=== PATIENT | female | born 1930 | race African-American/Black ===

== ENCOUNTER 2017-04-03 17:28 | Inpatient (IN) | payer MEDICARE, OTHER ==
[~2017-04-03] VITALS: Ht 165.1 cm; Wt 62.7 kg
[~2017-04-03 17:28] MED LIST: AMLO10TA80 PO; ATOR20TA65 PO; CLON0.2T PO; LOSA100T14 PO; WARF5TAB76 PO; ZOLP5TAB8 PO
[2017-04-03] MEDS ORDERED: ONDANSETRON HCL 4MG/2ML VIAL IV ONE (18:00)
[2017-04-03 18:20] LABS: HEMATOCRIT. 35.6 % (36.0-48.0); HEMOGLOBIN. 11.4 g/dL (12.0-16.0); MEAN CORPUSCULAR HEMOGLOBIN 26.3 pg (28.0-32.0); MEAN CORPUSCULAR VOLUME 82.4 fL (81.0-99.0); MEAN PLATELET VOLUME 7.9 fl (7.4-10.4); PLATELET 137 x1000/uL (130-400); RED BLOOD CELL COUNT 4.32 mill/uL (4.2-5.4); RED CELL DISTRIBUTION WIDTH 16.1 % (11.6-14.6)
[2017-04-03 18:24] LABS: INR 1.1; PARTIAL THROMBOPLASTIN TIME 27.8 sec (24.0-34.0); PROTHROMBIN TIME 11.6 sec
[2017-04-03 18:26] LABS: CARBON DIOXIDE 21 mEq/L (21-32); CHLORIDE 100 mEq/L (98-107)
[2017-04-03] MEDS ORDERED: SODIUM CHLORIDE 0.9% 250 ML IV ONE (18:28)
[2017-04-03] MEDS ORDERED: POTASSIUM CHLORIDE 20MEQ TABLET SR PO ONE (18:30)
[2017-04-03] MEDS ORDERED: INSULIN REGULAR (HUMULIN R) 300UNITS/3ML IV ONE (18:30)
[2017-04-03 18:49] LABS: PLATELET ESTIMATE NORMAL
[2017-04-03 19:00] LABS: CREATINE KINASE 2544 IU/L (26-192)
[2017-04-03] MEDS ORDERED: MAGNESIUM 2 G PREMIX 50 ML IV ONE (19:00)
[2017-04-03] MEDS ORDERED: MORPHINE SULFATE 2 MG/ML CPJ (NOT FOR IM USE) IV ONE (19:00)
[2017-04-03] MEDS ORDERED: HYDRALAZINE 20MG/ML VIAL IV ONE (19:00)
[2017-04-03] MEDS ORDERED: FUROSEMIDE 20MG/2ML VIAL IVP ONE (19:00)
[2017-04-03 19:52] LABS: CLARITY URINE CLEAR (CLEAR); COLOR URINE YELLOW (YELLOW); GLUCOSE URINE 3+ (NEGATIVE); KETONES URINE 1+ (NEGATIVE); LEUKOCYTE ESTERASE URINE NEGATIVE (NEGATIVE); NITRITE URINE NEGATIVE (NEGATIVE); OCCULT BLOOD URINE 3+ (NEGATIVE); PH URINE 6.5 (4.5-8.0); PROTEIN URINE 2+ (NEGATIVE); SPECIFIC GRAVITY URINE 1.016 (1.005-1.030); UROBILINOGEN URINE 0.2 E.U./dL (0.2-1.0)
[2017-04-04] VITALS (11 sets, daily range): BP systolic 122–179; BP diastolic 43–82
[2017-04-04] MEDS ORDERED: IPRATROPIUM/ALBUTEROL 0.5-3(2.5)MG/3ML NEB INH PRN (05:45)
[2017-04-04] MEDS ORDERED: MAGNESIUM/ALUMINUM HYDROXIDE/SIMETHICONE 30ML UDC PO PRN (05:45)
[2017-04-04] MEDS ORDERED: DEXTROSE 50% WATER 50ML SYRINGE IV PRN (05:45)
[2017-04-04] MEDS ORDERED: CLONIDINE 0.1MG TABLET PO PRN (05:45)
[2017-04-04] MEDS ORDERED: GUAIFENESIN 200MG/10ML SUGAR FREE UDC PO PRN (05:45)
[2017-04-04] MEDS ORDERED: ENOXAPARIN 40MG/0.4ML SYR SUBCUT SCH (05:45)
[2017-04-04] MEDS ORDERED: BLOOD SUGAR DIAGNOSTIC STRIP TEST SCH (07:30)
[2017-04-04] MEDS: BLOOD SUGAR DIAGNOSTIC STRIP TEST SCH ×4 (07:47→21:13)
[2017-04-04] MEDS ORDERED: POTASSIUM CHLORIDE INJ 40 MEQ in DEXT 5% WATER 250 ML IV NR (08:30)
[2017-04-04] MEDS: CLONIDINE 0.2MG TABLET PO SCH ×2 (09:18→20:46)
[2017-04-04] MEDS: AMLODIPINE 10MG TABLET PO SCH (09:18)
[2017-04-04] MEDS: LOSARTAN POTASSIUM 100 MG TABLET PO SCH (09:18)
[2017-04-04] MEDS: INSULIN LISPRO 100 UNITS/ML SUBCUT SCH ×4 (09:20→20:40)
[2017-04-04] MEDS: ENOXAPARIN 60MG/0.6ML SYR SUBCUT SCH ×2 (09:33→20:41)
[2017-04-04] MEDS: INSULIN DETEMIR UD 100 UNITS/ML SYR SUBCUT SCH (10:26)
[2017-04-04] MEDS: ACETAMINOPHEN 325MG TABLET PO PRN ×2 (11:46→19:49)
[2017-04-04] MEDS: DIPHENHYDRAMINE 50MG/ML VIAL IV PRN (11:53)
[2017-04-04] MEDS ORDERED: HYDRALAZINE 20MG/ML VIAL IV PRN (15:30)
[2017-04-04] MEDS ORDERED: CLONIDINE 0.2MG TABLET PO PRN (15:30)
[2017-04-04] MEDS: HYDROCODONE/ACETAMINOPHEN 5/325MG TABLET PO PRN ×2 (16:18→20:48)
[2017-04-04] MEDS ORDERED: MAGNESIUM 2 G PREMIX 50 ML IV NR (17:30)
[2017-04-04] MEDS: DEXTROSE 50% WATER 50ML SYRINGE IV PRN (18:10)
[2017-04-04] MEDS: ATORVASTATIN CALCIUM 20MG TABLET PO SCH (20:42)
[2017-04-04] MEDS: SODIUM CHLORIDE 0.9% INJ 3ML FLUSH IVF SCH (21:03)
[2017-04-05] VITALS (12 sets, daily range): BP systolic 111–191; BP diastolic 49–77
[2017-04-05] MEDS: IPRATROPIUM/ALBUTEROL 0.5-3(2.5)MG/3ML NEB HHN SCH ×6 (00:23→20:42)
[2017-04-05 05:59] LABS: HEMATOCRIT. 32.7 % (36.0-48.0); HEMOGLOBIN. 10.5 g/dL (12.0-16.0); MEAN CORPUSCULAR VOLUME 81.2 fL (81.0-99.0); MEAN PLATELET VOLUME 8.4 fl (7.4-10.4); PLATELET 128 x1000/uL (130-400); RED BLOOD CELL COUNT 4.03 mill/uL (4.2-5.4); RED CELL DISTRIBUTION WIDTH 16.4 % (11.6-14.6)
[2017-04-05] MEDS: SODIUM CHLORIDE 0.9% INJ 3ML FLUSH IVF SCH ×3 (06:11→21:00)
[2017-04-05 06:13] LABS: CARBON DIOXIDE 27 mEq/L (21-32); CHLORIDE 105 mEq/L (98-107)
[2017-04-05 06:19] LABS: CREATINE KINASE MB FRACTION 21.3 ng/mL (0.5-3.6); HDL CHOLESTEROL 60 mg/dL (40-59); LDL CHOLESTEROL 103 mg/dL (5-100)
[2017-04-05] MEDS: BLOOD SUGAR DIAGNOSTIC STRIP TEST SCH ×4 (08:20→21:00)
[2017-04-05 08:21] LABS: CREATINE KINASE 12450 IU/L (26-192)
[2017-04-05] MEDS: ENOXAPARIN 60MG/0.6ML SYR SUBCUT SCH (09:01)
[2017-04-05] MEDS: AMLODIPINE 10MG TABLET PO SCH (09:03)
[2017-04-05] MEDS: CLONIDINE 0.2MG TABLET PO SCH ×2 (09:03→20:58)
[2017-04-05] MEDS: LOSARTAN POTASSIUM 100 MG TABLET PO SCH (09:03)
[2017-04-05] MEDS: HYDROCODONE/ACETAMINOPHEN 5/325MG TABLET PO PRN ×3 (09:04→20:59)
[2017-04-05] MEDS: INSULIN LISPRO 100 UNITS/ML SUBCUT SCH ×4 (09:06→21:00)
[2017-04-05] MEDS: INSULIN DETEMIR UD 100 UNITS/ML SYR SUBCUT SCH (10:00)
[2017-04-05] MEDS ORDERED: CLONIDINE 0.1MG TABLET PO PRN (12:00)
[2017-04-05] MEDS: DIPHENHYDRAMINE 50MG/ML VIAL IV PRN (12:24)
[2017-04-05 12:50] LABS: PLATELET ESTIMATE SLIGHTLY DECREASED
[2017-04-05] MEDS: CEFAZOLIN 500 MG in DEXTROSE 5% WATER 50 ML IV SCH (17:48)
[2017-04-05] MEDS: ATORVASTATIN CALCIUM 20MG TABLET PO SCH (20:58)
[2017-04-06] VITALS (12 sets, daily range): BP systolic 104–159; BP diastolic 47–62
[2017-04-06] MEDS: IPRATROPIUM/ALBUTEROL 0.5-3(2.5)MG/3ML NEB HHN SCH ×6 (00:11→21:11)
[2017-04-06] MEDS: CEFAZOLIN 500 MG in DEXTROSE 5% WATER 50 ML IV SCH ×2 (05:50→17:53)
[2017-04-06] MEDS: SODIUM CHLORIDE 0.9% INJ 3ML FLUSH IVF SCH ×3 (05:56→22:36)
[2017-04-06] MEDS: BLOOD SUGAR DIAGNOSTIC STRIP TEST SCH ×4 (08:08→21:00)
[2017-04-06] MEDS: AMLODIPINE 10MG TABLET PO SCH (08:49)
[2017-04-06] MEDS: CLONIDINE 0.2MG TABLET PO SCH ×2 (08:49→20:57)
[2017-04-06] MEDS: LOSARTAN POTASSIUM 100 MG TABLET PO SCH (08:49)
[2017-04-06] MEDS: HYDROCODONE/ACETAMINOPHEN 5/325MG TABLET PO PRN ×2 (08:51→15:51)
[2017-04-06] MEDS: INSULIN LISPRO 100 UNITS/ML SUBCUT SCH ×4 (08:52→21:00)
[2017-04-06] MEDS ORDERED: ENOXAPARIN 60MG/0.6ML SYR SUBCUT SCH (09:00)
[2017-04-06] MEDS: DIPHENHYDRAMINE 50MG/ML VIAL IV PRN (10:23)
[2017-04-06] MEDS: INSULIN DETEMIR UD 100 UNITS/ML SYR SUBCUT SCH (12:30)
[2017-04-06] MEDS: ATORVASTATIN CALCIUM 20MG TABLET PO SCH (20:57)
[2017-04-06] MEDS: DEXTROSE 50% WATER 50ML SYRINGE IV PRN (21:28)
[2017-04-07] VITALS (13 sets, daily range): BP systolic 116–167; BP diastolic 51–109
[2017-04-07] MEDS: IPRATROPIUM/ALBUTEROL 0.5-3(2.5)MG/3ML NEB HHN SCH ×6 (00:17→21:36)
[2017-04-07] MEDS: SODIUM CHLORIDE 0.9% INJ 3ML FLUSH IVF SCH ×3 (06:22→21:14)
[2017-04-07] MEDS: CEFAZOLIN 500 MG in DEXTROSE 5% WATER 50 ML IV SCH ×2 (06:25→17:13)
[2017-04-07 06:47] LABS: BASOPHILS % 0.3 % (0.0-2.0); EOSINOPHILS % 0.6 % (0.0-5.0); HEMATOCRIT. 27.7 % (36.0-48.0); LYMPHOCYTES % 7.5 % (20.0-50.0); MEAN CORPUSCULAR VOLUME 80.2 fL (81.0-99.0); MEAN PLATELET VOLUME 8.8 fl (7.4-10.4); MONOCYTES % 6.8 % (2.0-8.0); NEUTROPHILS % 84.8 % (40.0-76.0); PLATELET 120 x1000/uL (130-400); RED BLOOD CELL COUNT 3.45 mill/uL (4.2-5.4); RED CELL DISTRIBUTION WIDTH 16.3 % (11.6-14.6)
[2017-04-07 07:16] LABS: CHLORIDE 98 mEq/L (98-107)
[2017-04-07 07:57] LABS: CARBON DIOXIDE 25 mEq/L (21-32); CREATINE KINASE MB FRACTION 45.1 ng/mL (0.5-3.6)
[2017-04-07] MEDS: INSULIN LISPRO 100 UNITS/ML SUBCUT SCH ×4 (08:00→21:00)
[2017-04-07] MEDS: BLOOD SUGAR DIAGNOSTIC STRIP TEST SCH ×4 (08:25→21:07)
[2017-04-07] MEDS: CLONIDINE 0.2MG TABLET PO SCH ×2 (08:33→21:13)
[2017-04-07] MEDS: LOSARTAN POTASSIUM 100 MG TABLET PO SCH (08:33)
[2017-04-07] MEDS: AMLODIPINE 10MG TABLET PO SCH (08:33)
[2017-04-07] MEDS: HYDROCODONE/ACETAMINOPHEN 5/325MG TABLET PO PRN ×2 (08:45→13:21)
[2017-04-07] MEDS: INSULIN DETEMIR UD 100 UNITS/ML SYR SUBCUT SCH (10:15)
[2017-04-07 12:38] LABS: CREATINE KINASE 21200 IU/L (26-192)
[2017-04-07] MEDS ORDERED: SODIUM CHLORIDE 0.45% 1,000 ML IV SCH (12:45)
[2017-04-07] MEDS ORDERED: SODIUM CHLORIDE 0.45% 500 ML IV ONE (12:55)
[2017-04-07 14:24] LABS: HEPATITIS B SURFACE ANTIGEN NEGATIVE
[2017-04-07 14:46] LABS: HEPATITIS B CORE AB IGM NEGATIVE
[2017-04-07 14:47] LABS: HEPATITIS A AB IGM NEGATIVE (NEGATIVE)
[2017-04-07] MEDS: SODIUM CHLORIDE 0.9% 1,000 ML IV SCH (14:50)
[2017-04-07 15:50] LABS: CLARITY URINE TURBID (CLEAR); COLOR URINE DARK YELLOW (YELLOW); GLUCOSE URINE NEGATIVE (NEGATIVE); KETONES URINE NEGATIVE (NEGATIVE); LEUKOCYTE ESTERASE URINE 2+ (NEGATIVE); NITRITE URINE NEGATIVE (NEGATIVE); OCCULT BLOOD URINE 3+ (NEGATIVE); PROTEIN URINE 2+ (NEGATIVE); UROBILINOGEN URINE 0.2 E.U./dL (0.2-1.0)
[2017-04-07] MEDS ORDERED: AMLODIPINE 10MG TABLET PO SCH (21:00)
[2017-04-07] MEDS: ACETAMINOPHEN 325MG TABLET PO PRN (21:13)
[2017-04-07] MEDS: DIPHENHYDRAMINE 50MG/ML VIAL IV PRN (21:47)
[2017-04-08] VITALS (14 sets, daily range): BP systolic 132–169; BP diastolic 47–98
[2017-04-08] MEDS: IPRATROPIUM/ALBUTEROL 0.5-3(2.5)MG/3ML NEB HHN SCH ×6 (00:31→20:45)
[2017-04-08] MEDS: SODIUM CHLORIDE 0.9% 1,000 ML IV SCH ×3 (03:50→18:33)
[2017-04-08] MEDS: CEFAZOLIN 500 MG in DEXTROSE 5% WATER 50 ML IV SCH ×2 (05:31→18:32)
[2017-04-08] MEDS: SODIUM CHLORIDE 0.9% INJ 3ML FLUSH IVF SCH ×3 (05:31→21:44)
[2017-04-08] MEDS: HYDROCODONE/ACETAMINOPHEN 5/325MG TABLET PO PRN ×2 (05:42→10:37)
[2017-04-08 06:54] LABS: HEMATOCRIT. 27.4 % (36.0-48.0); HEMOGLOBIN. 8.9 g/dL (12.0-16.0); MEAN CORPUSCULAR HEMOGLOBIN 25.9 pg (28.0-32.0); MEAN CORPUSCULAR VOLUME 79.6 fL (81.0-99.0); MEAN PLATELET VOLUME 8.6 fl (7.4-10.4); PLATELET 127 x1000/uL (130-400); RED BLOOD CELL COUNT 3.44 mill/uL (4.2-5.4); RED CELL DISTRIBUTION WIDTH 16.3 % (11.6-14.6)
[2017-04-08 07:41] LABS: CARBON DIOXIDE 25 mEq/L (21-32); CHLORIDE 98 mEq/L (98-107); PHOSPHORUS 5.8 mg/dL (2.5-4.9); T4 FREE 1.54 ng/dL (0.76-1.46)
[2017-04-08] MEDS: INSULIN LISPRO 100 UNITS/ML SUBCUT SCH ×4 (08:00→20:51)
[2017-04-08] MEDS ORDERED: SODIUM POLYSTYRENE SULFONATE 15 G/60 ML BOT PO SCH (08:00)
[2017-04-08] MEDS: BLOOD SUGAR DIAGNOSTIC STRIP TEST SCH ×4 (08:01→20:50)
[2017-04-08 08:55] LABS: CREATINE KINASE 43242 IU/L (26-192)
[2017-04-08] MEDS: NIFEDIPINE XL 60MG TAB PO SCH ×2 (09:07→21:44)
[2017-04-08] MEDS: CLONIDINE 0.2MG TABLET PO SCH ×2 (09:07→21:44)
[2017-04-08] MEDS: INSULIN DETEMIR UD 100 UNITS/ML SYR SUBCUT SCH (09:21)
[2017-04-08] MEDS: DEXTROSE 50% WATER 50ML SYRINGE IV PRN ×2 (13:00→18:39)
[2017-04-08 13:54] LABS: PLATELET ESTIMATE SLIGHTLY DECREASED
[2017-04-08] MEDS: DOCUSATE SODIUM 100MG CAPSULE PO SCH (18:33)
[2017-04-08 19:50] LABS: CREATINE KINASE 82940 IU/L (26-192)
[2017-04-09] VITALS (18 sets, daily range): BP systolic 101–149; BP diastolic 45–77
[2017-04-09] MEDS: SODIUM CHLORIDE 0.9% 1,000 ML IV SCH ×4 (00:31→21:06)
[2017-04-09] MEDS: IPRATROPIUM/ALBUTEROL 0.5-3(2.5)MG/3ML NEB HHN SCH ×7 (00:44→23:42)
[2017-04-09] MEDS: SODIUM CHLORIDE 0.9% INJ 3ML FLUSH IVF SCH ×3 (05:52→22:00)
[2017-04-09] MEDS: CEFAZOLIN 500 MG in DEXTROSE 5% WATER 50 ML IV SCH (05:52)
[2017-04-09 06:32] LABS: HEMATOCRIT. 26.8 % (36.0-48.0); HEMOGLOBIN. 8.9 g/dL (12.0-16.0); MEAN CORPUSCULAR HEMOGLOBIN 26.7 pg (28.0-32.0); MEAN CORPUSCULAR VOLUME 80.3 fL (81.0-99.0); MEAN PLATELET VOLUME 8.5 fl (7.4-10.4); PLATELET 113 x1000/uL (130-400); RED BLOOD CELL COUNT 3.34 mill/uL (4.2-5.4); RED CELL DISTRIBUTION WIDTH 16.6 % (11.6-14.6)
[2017-04-09 07:07] LABS: CARBON DIOXIDE 22 mEq/L (21-32); CHLORIDE 103 mEq/L (98-107); CREATINE KINASE MB FRACTION 77.8 ng/mL (0.5-3.6); PHOSPHORUS 6.9 mg/dL (2.5-4.9)
[2017-04-09] MEDS: HYDROCODONE/ACETAMINOPHEN 5/325MG TABLET PO PRN (07:35)
[2017-04-09 07:51] LABS: BG BASE EXCESS -3.2 mmol/L (-2.0-2.0); BG CARBOXYHEMOGLOBIN 0.3 % (0.5-1.5); BG DEOXYHEMOGLOBIN 2.5 % (0.0-5.0); BG FRACTION INSPIRED OXYGEN 28; BG METHEMOGLOBIN 0.4 % (0.0-1.5); BG OXYGEN SATURATION 97.5 % (92.0-98.5); BG OXYHEMOGLOBIN 96.8 % (94.0-97.0); BG PCO2 21.7 mmHg (35.0-45.0); BG PH 7.537 (7.350-7.450); BG PO2 104.7 mmHg (75.0-100.0); BG SAMPLE SITE RIGHT RADIAL; BG TOTAL HEMOGLOBIN 10.3 g/dL (12.0-18.0); BG VENT MODE NASAL CANNULA
[2017-04-09] MEDS: INSULIN LISPRO 100 UNITS/ML SUBCUT SCH ×4 (08:00→21:00)
[2017-04-09] MEDS: BLOOD SUGAR DIAGNOSTIC STRIP TEST SCH ×4 (08:00→21:00)
[2017-04-09 09:38] LABS: CREATINE KINASE 43734 IU/L (26-192)
[2017-04-09] MEDS: DOCUSATE SODIUM 100MG CAPSULE PO SCH ×2 (09:47→16:30)
[2017-04-09] MEDS: CLONIDINE 0.2MG TABLET PO SCH ×2 (09:48→21:00)
[2017-04-09] MEDS: NIFEDIPINE XL 60MG TAB PO SCH ×2 (10:00→21:00)
[2017-04-09] MEDS: INSULIN DETEMIR UD 100 UNITS/ML SYR SUBCUT SCH (10:06)
[2017-04-09 11:36] LABS: BG BASE EXCESS -5.7 mmol/L (-2.0-2.0); BG CARBOXYHEMOGLOBIN 0.5 % (0.5-1.5); BG DEOXYHEMOGLOBIN 4.8 % (0.0-5.0); BG FRACTION INSPIRED OXYGEN 21; BG HCO3 ACT 17.7 mmol/L (22.0-26.0); BG METHEMOGLOBIN 0.3 % (0.0-1.5); BG OXYGEN SATURATION 95.2 % (92.0-98.5); BG OXYHEMOGLOBIN 94.4 % (94.0-97.0); BG PCO2 26.9 mmHg (35.0-45.0); BG PH 7.435 (7.350-7.450); BG PO2 88.3 mmHg (75.0-100.0); BG SAMPLE SITE RIGHT BRACHIAL; BG TOTAL HEMOGLOBIN 8.6 g/dL (12.0-18.0); BG VENT MODE ROOM AIR
[2017-04-09 14:01] LABS: PLATELET ESTIMATE NORMAL
[2017-04-09] MEDS: LIDOCAINE 5% PATCH TOP SCH (15:37)
[2017-04-09] MEDS ORDERED: HYDROCODONE/ACETAMINOPHEN 5/325MG TABLET PO PRN (16:30)
[2017-04-09] MEDS: CALCIUM CARBONATE/VITAMIN D3 500MG TABLET PO SCH (16:30)
[2017-04-09 18:32] LABS: CREATINE KINASE 41218 IU/L (26-192)
[2017-04-09] MEDS: DEXTROSE 50% WATER 50ML SYRINGE IV PRN (20:28)
[2017-04-09] MEDS ORDERED: HEPARIN 25,000 UNITS PREMIX 500 ML IV SCH (22:00)
[2017-04-09] MEDS ORDERED: HEPARIN 5000 UNITS/ML VIAL IV ONE (22:00)
[2017-04-09 22:06] LABS: INR 1.1; PARTIAL THROMBOPLASTIN TIME 36.2 sec (24.0-34.0); PROTHROMBIN TIME 11.4 sec
[2017-04-09] MEDS ORDERED: HEPARIN BOLUS PRN aPTT <30 IV (22:45)
[2017-04-09] MEDS ORDERED: HEPARIN BOLUS PRN aPTT 30-44 IV (22:45)
[2017-04-09] MEDS ORDERED: HEPARIN 60 UNITS/KG BOLUS IV SCH (23:00)
[2017-04-09] MEDS: HEPARIN 25,000 UNITS PREMIX 500 ML IV SCH (23:48)
[2017-04-10] VITALS (101 sets, daily range): BP systolic 97–177; BP diastolic 28–104
[2017-04-10] MEDS: IPRATROPIUM/ALBUTEROL 0.5-3(2.5)MG/3ML NEB HHN SCH ×5 (04:00→20:18)
[2017-04-10] MEDS: SODIUM CHLORIDE 0.9% INJ 3ML FLUSH IVF SCH ×3 (05:26→21:06)
[2017-04-10 05:32] LABS: HEMATOCRIT. 25.5 % (36.0-48.0); HEMOGLOBIN. 8.2 g/dL (12.0-16.0); MEAN CORPUSCULAR HEMOGLOBIN 25.8 pg (28.0-32.0); MEAN CORPUSCULAR VOLUME 79.9 fL (81.0-99.0); MEAN PLATELET VOLUME 8.4 fl (7.4-10.4); PLATELET 104 x1000/uL (130-400); RED BLOOD CELL COUNT 3.19 mill/uL (4.2-5.4); RED CELL DISTRIBUTION WIDTH 16.4 % (11.6-14.6)
[2017-04-10 05:33] LABS: CARBON DIOXIDE 20 mEq/L (21-32); CHLORIDE 105 mEq/L (98-107); CREATINE KINASE MB FRACTION 72.3 ng/mL (0.5-3.6); PHOSPHORUS 7.8 mg/dL (2.5-4.9)
[2017-04-10] MEDS: CEFAZOLIN 500 MG in DEXTROSE 5% WATER 50 ML IV SCH ×2 (06:00→19:30)
[2017-04-10] MEDS: SODIUM CHLORIDE 0.9% 1,000 ML IV SCH (06:01)
[2017-04-10] MEDS: BLOOD SUGAR DIAGNOSTIC STRIP TEST SCH ×4 (06:01→20:55)
[2017-04-10] MEDS: DEXTROSE 50% WATER 50ML SYRINGE IV PRN ×2 (06:09→21:05)
[2017-04-10] MEDS: INSULIN LISPRO 100 UNITS/ML SUBCUT SCH ×4 (06:09→20:56)
[2017-04-10] MEDS: TRAMADOL 50MG TABLET PO PRN ×2 (07:52→14:19)
[2017-04-10] MEDS: CLONIDINE 0.2MG TABLET PO SCH ×2 (08:18→21:05)
[2017-04-10] MEDS: DOCUSATE SODIUM 100MG CAPSULE PO SCH ×2 (08:18→17:00)
[2017-04-10] MEDS: NIFEDIPINE XL 60MG TAB PO SCH ×2 (08:18→21:05)
[2017-04-10 08:21] LABS: PLATELET ESTIMATE SLIGHTLY DECREASED
[2017-04-10] MEDS: CALCITONIN,SALMON, 3.7 ML NASAL SPRAY ONENSTRL SCH (09:46)
[2017-04-10] MEDS: LIDOCAINE 5% PATCH TOP SCH (09:47)
[2017-04-10] MEDS: INSULIN DETEMIR UD 100 UNITS/ML SYR SUBCUT SCH (09:55)
[2017-04-10 10:33] LABS: CREATINE KINASE 30485 IU/L (26-192)
[2017-04-10] MEDS: CALCIUM CARBONATE/VITAMIN D3 500MG TABLET PO SCH ×2 (11:16→17:49)
[2017-04-10] MEDS: ACETAMINOPHEN 325MG TABLET PO PRN (11:16)
[2017-04-10] MEDS: HYDROMORPHONE HCL 2MG TABLET PO PRN ×3 (11:57→23:54)
[2017-04-10] MEDS: DEXT 5%/0.9% NACL 1,000 ML IV SCH ×2 (12:30→21:06)
[2017-04-10] MEDS: CALCIUM ACETATE 667MG CAPSULE PO SCH ×2 (13:58→17:49)
[2017-04-10] MEDS: DIPHENHYDRAMINE 50MG/ML VIAL IV PRN ×2 (15:26→22:35)
[2017-04-11] VITALS (82 sets, daily range): BP systolic 60–212; BP diastolic 26–110
[2017-04-11] MEDS: IPRATROPIUM/ALBUTEROL 0.5-3(2.5)MG/3ML NEB HHN SCH ×5 (00:18→16:14)
[2017-04-11] MEDS: BLOOD SUGAR DIAGNOSTIC STRIP TEST SCH ×3 (05:43→16:30)
[2017-04-11 05:44] LABS: HEMATOCRIT. 29.3 % (36.0-48.0); HEMOGLOBIN. 9.7 g/dL (12.0-16.0); MEAN CORPUSCULAR HEMOGLOBIN 26.6 pg (28.0-32.0); MEAN CORPUSCULAR VOLUME 80.6 fL (81.0-99.0); MEAN PLATELET VOLUME 8.9 fl (7.4-10.4); PLATELET 114 x1000/uL (130-400); RED BLOOD CELL COUNT 3.64 mill/uL (4.2-5.4); RED CELL DISTRIBUTION WIDTH 16.3 % (11.6-14.6)
[2017-04-11] MEDS: CEFAZOLIN 500 MG in DEXTROSE 5% WATER 50 ML IV SCH (05:54)
[2017-04-11] MEDS: SODIUM CHLORIDE 0.9% INJ 3ML FLUSH IVF SCH ×2 (05:54→13:47)
[2017-04-11] MEDS: CALCIUM ACETATE 667MG CAPSULE PO SCH ×3 (05:54→17:00)
[2017-04-11] MEDS: TRAMADOL 50MG TABLET PO PRN (05:54)
[2017-04-11] MEDS: INSULIN LISPRO 100 UNITS/ML SUBCUT SCH ×3 (05:55→17:00)
[2017-04-11 06:03] LABS: CARBON DIOXIDE 18 mEq/L (21-32); CHLORIDE 101 mEq/L (98-107); CREATINE KINASE MB FRACTION 92.4 ng/mL (0.5-3.6)
[2017-04-11] MEDS: ONDANSETRON HCL 4MG/2ML VIAL IV PRN ×2 (06:35→12:00)
[2017-04-11 07:21] LABS: CREATINE KINASE 23000 IU/L (26-192)
[2017-04-11 07:33] LABS: PLATELET ESTIMATE DECREASED
[2017-04-11] MEDS: DEXT 5%/0.9% NACL 1,000 ML IV SCH (08:39)
[2017-04-11] MEDS: HEPARIN 25,000 UNITS PREMIX 500 ML IV SCH (08:43)
[2017-04-11] MEDS: CALCIUM CARBONATE/VITAMIN D3 500MG TABLET PO SCH ×2 (08:43→17:00)
[2017-04-11] MEDS: DOCUSATE SODIUM 100MG CAPSULE PO SCH ×2 (08:44→17:00)
[2017-04-11] MEDS: NIFEDIPINE XL 60MG TAB PO SCH (08:44)
[2017-04-11] MEDS: CALCITONIN,SALMON, 3.7 ML NASAL SPRAY ONENSTRL SCH (08:44)
[2017-04-11] MEDS: LIDOCAINE 5% PATCH TOP SCH (08:47)
[2017-04-11] MEDS: CLONIDINE 0.2MG TABLET PO SCH (08:48)
[2017-04-11] MEDS ORDERED: CEFEPIME HCL 1000MG/VIAL INJ IM SCH (09:15)
[2017-04-11] MEDS ORDERED: ALBUMIN HUMAN 25GM/100ML (25%) IV NR (09:15)
[2017-04-11] MEDS ORDERED: SODIUM BICARBONATE 650 MG TABLET PO SCH (09:30)
[2017-04-11] MEDS: INSULIN DETEMIR UD 100 UNITS/ML SYR SUBCUT SCH (10:04)
[2017-04-11 10:28] LABS: BG BASE EXCESS -9.3 mmol/L (-2.0-2.0); BG CARBOXYHEMOGLOBIN 0.6 % (0.5-1.5); BG DEOXYHEMOGLOBIN 17.8 % (0.0-5.0); BG FRACTION INSPIRED OXYGEN 21; BG HCO3 ACT 15.8 mmol/L (22.0-26.0); BG METHEMOGLOBIN 0.1 % (0.0-1.5); BG OXYGEN SATURATION 82.1 % (92.0-98.5); BG OXYHEMOGLOBIN 81.5 % (94.0-97.0); BG PCO2 31.7 mmHg (35.0-45.0); BG PH 7.315 (7.350-7.450); BG PO2 52.7 mmHg (75.0-100.0); BG SAMPLE SITE RIGHT BRACHIAL; BG TOTAL HEMOGLOBIN 10.5 g/dL (12.0-18.0); BG VENT MODE ROOM AIR
[2017-04-11] MEDS ORDERED: CEFEPIME 1,000 MG in DEXTROSE 5% WATER 50 ML IV SCH (11:00)
[2017-04-11] MEDS ORDERED: VANCOMYCIN 1,250 MG in DEXT 5% WATER 250 ML IV SCH (11:30)
[2017-04-11] MEDS ORDERED: METOCLOPRAMIDE HCL 10MG/2ML VIAL IV PRN (11:45)
[2017-04-11] MEDS ORDERED: PANTOPRAZOLE SODIUM 40 MG/VIAL IV SCH (11:45)
[2017-04-11] MEDS ORDERED: ETOMIDATE 2MG/ML 10ML VIAL IV ONE (12:57)
[2017-04-11] MEDS ORDERED: SUCCINYLCHOLINE CHLORIDE 200MG/10ML VIAL IV ONE (12:57)
[2017-04-11] MEDS: DIPHENHYDRAMINE 50MG/ML VIAL IV PRN (13:46)
[2017-04-11] MEDS ORDERED: SODIUM BICARBONATE 7.5% 0.9 MEQ/ML 50ML SYR IV ONE (13:52)
[2017-04-11] MEDS ORDERED: EPINEPHRINE 0.1MG/ML (1:10,000) 10ML SYR ONE (13:52)
[2017-04-11 15:59] LABS: BG BASE EXCESS -12.9 mmol/L (-2.0-2.0); BG CARBOXYHEMOGLOBIN 0.3 % (0.5-1.5); BG DEOXYHEMOGLOBIN 22.1 % (0.0-5.0); BG FRACTION INSPIRED OXYGEN 91; BG HCO3 ACT 16.2 mmol/L (22.0-26.0); BG METHEMOGLOBIN 0.3 % (0.0-1.5); BG OXYGEN SATURATION 77.8 % (92.0-98.5); BG OXYHEMOGLOBIN 77.3 % (94.0-97.0); BG PCO2 51.3 mmHg (35.0-45.0); BG PH 7.116 (7.350-7.450); BG PO2 57.8 mmHg (75.0-100.0); BG SAMPLE SITE RIGHT BRACHIAL; BG VENT MODE MASK - NRB
[2017-04-11] MEDS ORDERED: PROPOFOL 10MG/ML 100ML 100 ML IV PRN (16:15)
[2017-04-11] MEDS ORDERED: NOREPINEPHRINE 16 MG in DEXT 5% WATER 234 ML IV PRN (16:30)
[2017-04-11] MEDS ORDERED: HEPARIN SODIUM 1,000 UNIT/1ML VIAL IV NR (17:00)
[2017-04-11 18:15] LABS: BG BASE EXCESS -13.6 mmol/L (-2.0-2.0); BG CARBOXYHEMOGLOBIN 0.3 % (0.5-1.5); BG DEOXYHEMOGLOBIN 17.6 % (0.0-5.0); BG FRACTION INSPIRED OXYGEN 100; BG HCO3 ACT 15.6 mmol/L (22.0-26.0); BG METHEMOGLOBIN 0.4 % (0.0-1.5); BG OXYGEN SATURATION 82.3 % (92.0-98.5); BG OXYHEMOGLOBIN 81.7 % (94.0-97.0); BG PCO2 51.1 mmHg (35.0-45.0); BG PH 7.103 (7.350-7.450); BG SAMPLE SITE RIGHT BRACHIAL; BG TIDAL VOLUME(mL) 500 mL; BG TOTAL HEMOGLOBIN 10.7 g/dL (12.0-18.0); BG VENT MODE AC; BG VENT RATE 14 set
[2017-04-11] MEDS ORDERED: SODIUM BICARBONATE 8.4% 1 MEQ/ML 50ML SYR IV NR (18:30)
[2017-04-11] MEDS ORDERED: SODIUM ACETATE 150 MEQ in DEXTROSE 5% WATER 1,000 ML IV SCH (20:30)
[2017-04-12] MEDS ORDERED: PANTOPRAZOLE SODIUM 40 MG/VIAL IV SCH (09:00)
== END 2017-04-11 19:55 | disposition expired | DRG 871 ==
LOC: ER 17:28 → EDBEDREQSVC 20:11 → 5EST 21:02 → EDBEDREQ 21:05 → 5EST 04-05 00:15 → MICUSO 04-09 20:20
PROVIDERS: ADMIT Internal Medicine; ATTEND Internal Medicine
PROC: 5A1935Z Respiratory Ventilation, Less than 24 Consecutive Hours (ICD-10-PCS; principal; 2017-04-03)
PROC: 0BH17EZ Insertion of Endotracheal Airway into Trachea, Via Natural or Artificial Opening (ICD-10-PCS; 2017-04-03)
PROC: 0CJS8ZZ Inspection of Larynx, Via Natural or Artificial Opening Endoscopic (ICD-10-PCS; 2017-04-03)
PROC: 02HV33Z Insertion of Infusion Device into Superior Vena Cava, Percutaneous Approach (ICD-10-PCS; 2017-04-03)
PROC: B548ZZA Ultrasonography of Superior Vena Cava, Guidance (ICD-10-PCS; 2017-04-03)
PROC: 30233N1 Transfusion of Nonautologous Red Blood Cells into Peripheral Vein, Percutaneous Approach (ICD-10-PCS; 2017-04-10)
PROC: 02H633Z Insertion of Infusion Device into Right Atrium, Percutaneous Approach (ICD-10-PCS; 2017-04-10)
PROC: B244ZZZ Ultrasonography of Right Heart (ICD-10-PCS; 2017-04-10)
PROC: 5A1D00Z (ICD-10-PCS; 2017-04-11)
DX: A41.51 Sepsis due to Escherichia coli [E. coli] (principal); I21.4 Non-ST elevation (NSTEMI) myocardial infarction; E43 Unspecified severe protein-calorie malnutrition; J96.01 Acute respiratory failure with hypoxia; N17.0 Acute kidney failure with tubular necrosis; G93.40 Encephalopathy, unspecified; I50.41 Acute combined systolic (congestive) and diastolic (congestive) heart failure; E13.10 Other specified diabetes mellitus with ketoacidosis without coma; N39.0 Urinary tract infection, site not specified; I45.89 Other specified conduction disorders; M48.54XA Collapsed vertebra, not elsewhere classified, thoracic region, initial encounter for fracture; M62.82 Rhabdomyolysis; Z68.23 Body mass index [BMI] 23.0-23.9, adult; D50.9 Iron deficiency anemia, unspecified; D69.6 Thrombocytopenia, unspecified; E78.00 Pure hypercholesterolemia, unspecified; E78.5 Hyperlipidemia, unspecified; E83.42 Hypomagnesemia; E87.5 Hyperkalemia; E87.6 Hypokalemia; F03.90 Unspecified dementia, unspecified severity, without behavioral disturbance, psychotic disturbance, mood disturbance, and anxiety; G83.11 Monoplegia of lower limb affecting right dominant side; I11.0 Hypertensive heart disease with heart failure; I16.0 Hypertensive urgency; I25.10 Atherosclerotic heart disease of native coronary artery without angina pectoris; I27.2 Other secondary pulmonary hypertension; I35.1 Nonrheumatic aortic (valve) insufficiency; I48.2 Chronic atrial fibrillation; I49.5 Sick sinus syndrome; I77.1 Stricture of artery; K21.9 Gastro-esophageal reflux disease without esophagitis; K44.9 Diaphragmatic hernia without obstruction or gangrene; K57.90 Diverticulosis of intestine, part unspecified, without perforation or abscess without bleeding; M48.06 Spinal stenosis, lumbar region; M51.27 Other intervertebral disc displacement, lumbosacral region; S00.03XA Contusion of scalp, initial encounter; E13.51 Other specified diabetes mellitus with diabetic peripheral angiopathy without gangrene; Z66 Do not resuscitate; K27.9 Peptic ulcer, site unspecified, unspecified as acute or chronic, without hemorrhage or perforation; J44.9 Chronic obstructive pulmonary disease, unspecified; W06.XXXA Fall from bed, initial encounter; Z59.9 Problem related to housing and economic circumstances, unspecified; Z79.01 Long term (current) use of anticoagulants; Z82.49 Family history of ischemic heart disease and other diseases of the circulatory system; Z83.3 Family history of diabetes mellitus; Z90.49 Acquired absence of other specified parts of digestive tract; Z91.19 Patient's noncompliance with other medical treatment and regimen; Z95.0 Presence of cardiac pacemaker; Z95.1 Presence of aortocoronary bypass graft; Z95.2 Presence of prosthetic heart valve; Z95.3 Presence of xenogenic heart valve; Z88.6 Allergy status to analgesic agent; Z79.899 Other long term (current) drug therapy
CPT/HCPCS: 36415; 36556; 36569; 36600; 70450; 71010; 72125; 72128; 72131; 72192; 73502; 73700; 74000; 74176; 76700; 76937; 80053; 80061; 81001; 82010; 82375; 82550; 82553; 82570; 82805; 82962; 83605; 83690; 83735; 83880; 83935; 84100; 84300; 84439; 84443; 84484; 85025; 85610; 85730; 86705; 86709; 86803; 86850; 86900; 86920; 87040; 87077; 87086; 87186; 87340; 92523; 92610; 93005; 93306; 93923; 93970; 94640; 96365; 96375; 97163; 97167; 97530; 99291; A6261; C1725; C1752; C9113; J0171; J0330; J0360; J0690; J0692; J1200; J1644; J1650; J1815; J1940; J2270; J2405; J2765; J3370; J3475; J3480; J3490; J7030; J7040; J7042; J7050; J7060; J7070; J7620; P9016; P9047; A4315